=== PATIENT | female | born 1990 | race African-American/Black ===

== ENCOUNTER 2019-08-29 08:22 | Emergency (ER) | payer MEDICAID ==
[~2019-08-29] VITALS: Ht 167.6 cm; Wt 90.7 kg
[2019-08-29 08:35] VITALS: BP 152/82
[2019-08-29 09:15] LABS: Urine Bacteria FEW /hpf (None Seen); Urine Blood Negative /uL (Negative); Urine Mucus FEW (None Seen); Urine Specific Gravity 1.023 (1.001-1.035); Urine WBC 26 /hpf (0 - 5)
== END 2019-08-29 09:49 | disposition home or self-care (01) ==
LOC: ER 08:22
DX: O23.32 Infections of other parts of urinary tract in pregnancy, second trimester (principal); J45.909 Unspecified asthma, uncomplicated; F17.210 Nicotine dependence, cigarettes, uncomplicated; Z3A.19 19 weeks gestation of pregnancy
CPT/HCPCS: 76805; 81001